=== PATIENT | male | born 2000 | race Caucasian/White ===

== ENCOUNTER 2021-11-01 17:36 | Emergency (ER) | payer OTHER ==
[~2021-11-01] VITALS: Ht 185.4 cm; Wt 72.7 kg
[2021-11-01 17:54] VITALS: TEMP 98
[2021-11-01 19:07] VITALS: BP 134/75; PULSE 77
== END 2021-11-01 19:07 | disposition home or self-care (01) ==
LOC: COL.ER 17:36
DX: S62.111A Displaced fracture of triquetrum [cuneiform] bone, right wrist, initial encounter for closed fracture (principal); S40.011A Contusion of right shoulder, initial encounter; V28.4XXA Motorcycle driver injured in noncollision transport accident in traffic accident, initial encounter; Y93.55 Activity, bike riding